=== PATIENT | male | born 1985 | race African-American/Black ===

== ENCOUNTER 2018-02-14 15:43 | Observation (INO) | payer BC ==
[2018-02-14] MEDS ORDERED: ALBUTEROL 2.5 MG/3 ML NEB SOL IH PRN (16:16)
[2018-02-14 16:34] LABS: Urine Appearance CLEAR; Urine Bilirubin NEGATIVE (NEG); Urine Blood NEGATIVE (NEG); Urine Color YELLOW; Urine Glucose NEGATIVE (NEG); Urine Protein NEGATIVE (NEG); Urine Specific Gravity <=1.005 (1.005-1.030); Urine Urobilinogen 0.2 mg/dL (0.2-1.0); Urine pH 7.5 (5.0-7.0)
[2018-02-14 16:35] LABS: Urine Microscopic Reflex NO UMIC
[2018-02-14] MEDS ORDERED: ACETAMINOPHEN 325 MG TABLET PO PRN (17:00)
[2018-02-14] MEDS ORDERED: ONDANSETRON 4 MG/2 ML VIAL IV PRN (17:00)
[2018-02-14] MEDS ORDERED: LOPERAMIDE HCL 2 MG CAPSULE PO PRN (17:00)
[2018-02-14] MEDS ORDERED: PNEUMOCOCCAL VACCINE 0.5 ML IMVAC ONE (17:00)
[2018-02-14] MEDS ORDERED: ONDANSETRON 4 MG (ODT) TAB PO PRN (17:00)
[2018-02-14] MEDS ORDERED: POLYETHYL GLY 3350 17 GM/DOSE PO PRN (17:00)
[2018-02-14 17:12] LABS: Absolute Lymphocytes (CBC) 2.8 K/uL (0.7-4.9); Absolute Monocytes 0.5 K/uL (0.1-1.3); Absolute Neutrophil 5.6 K/uL (1.8-8.0); Basophils % 0.7 % (0-1.3); Eosinophils % 0.5 % (0-4.4); Hematocrit 47.3 % (39.6-49.0); Lymphocytes % 30.7 % (15.3-44.8); MCH 28.7 pg (27.0-35.0); MCV 85.7 fL (80-100); MPV 8.6 fL (7.6-11.3); Monocytes % 5.5 % (3.3-12.3); RBC Red Blood Cell Count 5.52 M/uL (4.33-5.43)
[2018-02-14] MEDS: NACHLORIDE 0.45% 1,000 ML IV SCH (17:23)
[2018-02-14 17:55] LABS: ALT/SGPT 36 U/L (12-78); AST/SGOT 23 U/L (15-37); Albumin 4.3 g/dL (3.4-5.0); Alkaline Phosphatase 97 U/L (45-117); BUN Blood Urea Nitrogen 13 mg/dL (7-18); Bicarbonate 27 mmol/L (21-32); Bilirubin Direct < 0.1 mg/dL (0-0.2); Bilirubin Total 0.3 mg/dL (0.2-1.0); Glucose Level 128 mg/dL (74-106); Magnesium 2.5 mg/dL (1.8-2.4); NT PRO-BNP 13 pg/mL (<125); Phosphorus 3.3 mg/dL (2.5-4.9); Sodium Level 138 mmol/L (136-145)
[2018-02-14 18:03] LABS: Protime INR 1.01
[2018-02-14] MEDS: IPRATROPIUM BROM 0.5MG/2.5ML IH SCH (19:56)
[2018-02-14 19:57] VITALS: BMI 24.6
[2018-02-14] MEDS: ALBUTEROL 2.5 MG/3 ML NEB SOL IH SCH (19:57)
--- NOTE | 2018-02-14 21:10 | RAD REPORT ---
EXAM DESCRIPTION: CT - Chest Angio - 02/14/2018 8:28 pm CLINICAL HISTORY: sob COMPARISON: 2009 TECHNIQUE: Dynamically enhanced axial 3 mm thick images of the chest were obtained during administra tion of <100> mL Isovue 370 IV contrast. Coronal and oblique reconstruction images were generated and reviewed. Exam utilizes a protocol for optimal evaluation of pulmonary arterial tree. Maximum intensity projections 3D imaging was utilized All CT scans are performed using dose optimization technique as appropriate and may include automated exposure control or mA/KV adjustment according to patient size. FINDINGS: A pulmonary embolus is not seen. A thoracic aortic aneurysm is not noted. A pleural effusion is not seen. A pericardial effusion is not seen. A lung consolidation is not present. IMPRESSION: Negative for a pulmonary embolism.
--- NOTE | 2018-02-14 21:19 | RAD REPORT ---
EXAM DESCRIPTION: CT - Abdomen Pelvis W Contrast - 02/14/2018 8:28 pm CLINICAL HISTORY: Abdominal pain. COMPARISON: May 2017 TECHNIQUE: Computed axial tomography of the abdomen and pelvis was obtained. 100 cc Isovue-300 is ad ministered intravenously. Oral contrast was given. All CT scans are performed using dose optimization technique as appropriate and may include automated exposure control or mA/KV adjustment according to patient size. FINDINGS: Some of the images are degraded by respiratory motion artifact Small hepatic lesions are without obvious change The spleen, pancreas, adrenals and kidneys appear unremarkable. The appendix is normal caliber. There is no evidence of diverticulitis Right inguinal hernia contains fat IMPRESSION: Right inguinal hernia Stable small hepatic lesions. Follow-up ultrasound in 6 months is recommended for re-evaluation
[2018-02-14] MEDS: clonazePAM 0.5 MG TAB PO SCH (21:56)
[2018-02-14] MEDS: DIPHENHYDRAMINE 25 MG TAB/CAP PO PRN (21:57)
[2018-02-15] MEDS: IPRATROPIUM BROM 0.5MG/2.5ML IH SCH ×4 (02:00→20:00)
[2018-02-15] MEDS: ALBUTEROL 2.5 MG/3 ML NEB SOL IH SCH ×4 (02:00→20:00)
[2018-02-15] MEDS: NACHLORIDE 0.45% 1,000 ML IV SCH ×3 (03:47→21:37)
[2018-02-15 05:20] LABS: Absolute Lymphocytes (CBC) 4.4 K/uL (0.7-4.9); Absolute Monocytes 0.9 K/uL (0.1-1.3); Absolute Neutrophil 5.2 K/uL (1.8-8.0); Basophils % 0.5 % (0-1.3); Eosinophils % 1.8 % (0-4.4); Hematocrit 46.3 % (39.6-49.0); MCH 29.3 pg (27.0-35.0); MCV 86.4 fL (80-100); MPV 8.5 fL (7.6-11.3); Monocytes % 8.4 % (3.3-12.3); RBC Red Blood Cell Count 5.36 M/uL (4.33-5.43)
[2018-02-15 05:31] LABS: Magnesium 2.3 mg/dL (1.8-2.4); Potassium 4.1 mmol/L (3.5-5.1)
[2018-02-15] MEDS: clonazePAM 0.5 MG TAB PO SCH ×2 (08:37→21:00)
--- NOTE | 2018-02-15 13:10 | P.PN ---
Subjective Date of Service: 02/15/18 Chief Complaint: DIARRHEA, VOMITING, DYSPNEA, FATIGUE, HEADACHES Subjective: Improving Review of Systems 10-point ROS is otherwise unremarkable Physical Examination - Vital Signs Temperature: 96.6 F Blood Pressure: 115/67 Pulse: 72 Respirations: 12 Pulse Ox (%): 98 - Physical Exam General: Mild distress HEENT: Atraumatic, PERRLA, EOMI Neck: Supple, JVD not distended Respiratory: Clear to auscultation bilaterally, Normal air movement Cardiovascular: Regular rate/rhythm, Normal S1 S2 Gastrointestinal: Normal bowel sounds, No tenderness Musculoskeletal: No tenderness Integumentary: No rashes Neurological: Normal speech, Normal tone, Normal affect Lymphatics: No axilla or inguinal lymphadenopathy - Studies Laboratory Data (last 24 hrs) 02/15/18 04:47: Sodium 139, Potassium 4.1, BUN 13, Creatinine 1.30, Glucose 93, Magnesium 2.3 02/15/18 04:47: WBC 10.8 D, Hgb 15.7, Hct 46.3, Plt Count 250 02/14/18 17:30: PT 11.9, INR 1.01, APTT 28.0 02/14/18 17:00: Sodium 138, Potassium 4.0, BUN 13, Creatinine 1.40 H, Glucose 128 H, Phosphorus 3.3, Magnesium 2.5 H, Total Bilirubin 0.3, AST 23, ALT 36, Alkaline Phosphatase 97 02/14/18 17:00: WBC 9.0, Hgb 15.8, Hct 47.3, Plt Count 280 Microbiology Data (last 24 hrs): 02/14/18 20:13 Stool Occult Blood - Final Medications List Reviewed: Yes Assessment And Plan - Current Problems (Diagnosis) (1) Nausea vomiting and diarrhea Onset Date: 02/15/18 Current Visit: Yes Status: Chronic Plan: UNCLEAR ETIOLOGY HAS DONE FULL SIMMONS BY DR BERMEO FOR MONTHS. STILL NOT IMPROVED RULE OUT CARCINOID SYNDROME. MRI OF LIVER TO FU ON LESIONS 24 HOUR URINE 5HIAA CATECHOLAMINES GASTRIN LEVEL , OTHER SERUM MARKERS ORDERED FU IN AM DC AND FU ON SEND OUT LABS. Orders (last 24 hrs) 02/14/18 16:16 Albuterol Neb [Proventil 0.083% Neb Soln] 2.5 mg IH Q2HP PRN 02/14/18 16:24 Sequential Compression Device NOW 02/14/18 17:00 NASIM IFA Screen w/Reflex Routine Vitamin D,1,25 Dihydroxy Routine Acetaminophen [Tylenol -Tablet] 650 mg PO Q6HP PRN Diphenhydramine [Benadryl Tab/Cap] 25 mg PO BEDTIME PRN PRN Loperamide [Imodium] 4 mg PO Q4HP PRN Nachloride 0.45% [Sodium Chloride 0.45%] 1,000 ml IV 100 mls/hr Normal Saline Flush 10 ml IV PRN PRN Normal Saline Flush 10 ml IV QSHIFT Ondansetron [Zofran] 4 mg IV Q6HP PRN Ondansetron [Zofran] 4 mg PO Q6HP PRN Polyethyl Gly 3350 [Glycolax] 17 gm PO BEDTIME PRN PRN Blood Culture Stat 02/14/18 18:28 SBAR Routine O2 [Oxygen] Nasal Cannula 2 lpm 02/14/18 20:00 Albuterol Neb [Proventil 0.083% Neb Soln] 2.5 mg IH [id number] Ipratropium Neb [Atrovent Neb] 0.5 mg IH [id number] 02/14/18 20:13 Clostridium difficile DNA Routine Fecal Leukocyte Stain Routine Stool Culture Routine 02/14/18 21:00 clonazePAM [Klonopin] 0.5 mg PO BID 02/14/18 21:54 Isolation Cart [Isolation Precautions (Impleme] Routine 02/15/18 Hepatitis Panel,Acute Routine Mri Abdomen W/Wo Cont [MRI] Routine 02/15/18 06:37 Urine Catecholamines,24 HR Routine Urine Metanephrine 24 Hour Routine Urine VMA 24 Hr Routine 02/15/18 06:40 Miscellaneous Test Lab Routine 02/15/18 21:00 Ranitidine [Zantac] 150 mg PO BID 02/16/18 05:00 Basic Metabolic Panel DAILY CBC with Automated Diff DAILY Magnesium DAILY
--- NOTE | 2018-02-15 14:24 | CON ---
Date of Consultation: 02/14/2018 Reason: Right inguinal hernia. History Of Present Illness: The patient is a 32-year-old gentleman, comes in with acute onset of rudy rrhea, fatigue, weakness, malaise. He saw Dr. Yao yesterday. He appeared dehydrated, was admitted , and had a CAT scan done, which showed a right inguinal hernia and I was consulted. He is awake, al ert. He is really does not have any pain in the right groin at this time. He just feels weak. He h ad a similar episode last year about 6 months ago. Following some antibiotics that he had received, he had diarrhea. He has had a complete GI workup by Dr. Kim, which shows a hiatal hernia and GERD . No other significant finding and the patient currently is also being ruled out for carcinoid syndr ome by Dr. Yao. In the meantime, I was asked to evaluate the hernia. It is reducible. He is in n o discomfort from it at this time. No sore throat, runny nose, cough, headaches, or dizziness. No c hest pain. No fever or chills. Review of Systems: Otherwise unremarkable. Past Medical History: GERD and hiatal hernia. Past Surgical History: Oral, sinus surgery. Allergies: INCLUDE AZITHROMYCIN. Social History: Does not smoke or drink. Family History: Noncontributory. Physical Examination: Vital Signs: Stable. He is afebrile. General: He is awake, alert, and oriented x3. Head and neck: Cranial nerves 2 through 12 are grossly within normal limits. No neck masses. No JV D. Throat clear. Neck is supple. Chest: Clear. Heart: S1, S2. Abdomen: Soft, nondistended, nontender. Positive bowel sounds. Extremities: Neurovascularly intact. Neuro: nonfocal. Pelvic: Right groin, there is a small right inguinal hernia, which is reducible. Normal penis and t mcmullen. No hernia on the left side. CT of the abdomen and pelvis reviewed and laboratory data reviewed. Essentially, he has some cysts o n his liver, which are being worked up with MRI and otherwise he just has a right inguinal hernia wit h fat containing. White count is normal. Chemistry initially showed some dehydration with elevated creatinine, which is normalized today. Assessment: A 32-year-old gentleman with diarrhea, workup in progress and right inguinal hernia. Es sentially asymptomatic at this time. Recommendation: Medical management for his GI issues and workup for carcinoid syndrome. The patient does not need his right inguinal hernia repaired at this time. Should he be symptomatic, he can fol low up as an outpatient and then I will be happy to take care of it as an outpatient. Plan of care d iscussed in detail with the patient as well as Dr. Yao. LAURA/PURVI Voice ID: [id number] Report ID: [id number]
[2018-02-15] MEDS: RANITIDINE 150 MG TABLET PO SCH (21:00)
[2018-02-15] MEDS: DIPHENHYDRAMINE 25 MG TAB/CAP PO PRN (21:36)
[2018-02-16] MEDS: ALBUTEROL 2.5 MG/3 ML NEB SOL IH SCH ×3 (02:00→14:00)
[2018-02-16] MEDS: IPRATROPIUM BROM 0.5MG/2.5ML IH SCH ×3 (02:00→14:00)
[2018-02-16 04:18] LABS: Absolute Neutrophil 5.6 K/uL (1.8-8.0); Basophils % 0.9 % (0-1.3); Eosinophils % 2.2 % (0-4.4); Hematocrit 44.5 % (39.6-49.0); Lymphocytes % 41.7 % (15.3-44.8); MCH 29.2 pg (27.0-35.0); MCV 87.1 fL (80-100); MPV 8.1 fL (7.6-11.3); Monocytes % 8.5 % (3.3-12.3); RBC Red Blood Cell Count 5.11 M/uL (4.33-5.43)
[2018-02-16 04:30] LABS: Magnesium 2.2 mg/dL (1.8-2.4); Potassium 4.2 mmol/L (3.5-5.1)
--- NOTE | 2018-02-16 08:04 | ECHO ---
HEIGHT: 5 ft 8 in WEIGHT: 162 lb 0 oz DATE OF STUDY: 02/15/[address]: Coy Yao MD 2-DIMENSIONAL: YES M.MODE: YES DOPPLER: YES COLOR FLOW: YES TDS: PORTABLE: DEFINITY: BUBBLE STUDY: DIAGNOSIS: DYSPNEA CARDIAC HISTORY: CATHERIZATION: NO SURGERY: NO PROSTHETIC VALVE: NO PACEMAKER: NO MEASUREMENTS (cm) DIASTOLIC (NORMALS) SYSTOLIC (NORMALS) IVSd 1.0 (0.6-1.2) LA Diam 2.7 (1.9-4.0) LVEF 75% LVIDd 3.9 (3.5-5.7) LVIDs 2.2 (2.0-3.5) %FS 44% LVPWd 1.1 (0.6-1.2) Ao Diam 2.7 (2.0-3.7) 2 DIMENSIONAL ASSESSMENT: RIGHT ATRIUM: NORMAL LEFT ATRIUM: NORMAL RIGHT VENTRICLE: NORMAL LEFT VENTRICLE: NORMAL TRICUSPID VALVE: NORMAL MITRAL VALVE: NORMAL PULMONIC VALVE: NORMAL AORTIC VALVE: NORMAL PERICARDIAL EFFUSION: NONE AORTIC ROOT: NORMAL LEFT VENTRICULAR WALL MOTION: NORMAL DOPPLER/COLOR FLOW: NORMAL COMMENTS: NORMAL 2-DIMENSIONAL ECHOCARDIOGRAM WITH DOPPLER. NO WALL MOTION ABNORMALITY. NO EFFUSION. NO MITRAL VALVE PROLAPSE. NO ATRIAL SEPTAL DEFECT. TECHNOLOGIST: SOLEDAD HINTON
[2018-02-16] MEDS ORDERED: PANTOPRAZOLE 40 MG INJ IVP ONE (08:11)
[2018-02-16] MEDS ORDERED: SODIUM CHLORIDE 0.9% 10ML INJ IV PRN (08:11)
[2018-02-16] MEDS: RANITIDINE 150 MG TABLET PO SCH (09:00)
[2018-02-16] MEDS ORDERED: [UNRECOGNIZED DRUG - OTHER] PO SCH (09:00)
[2018-02-16] MEDS: NACHLORIDE 0.45% 1,000 ML IV SCH (09:08)
[2018-02-16] MEDS: clonazePAM 0.5 MG TAB PO SCH (09:11)
[2018-02-16 11:41] VITALS: O2SAT 98
--- NOTE | 2018-02-16 12:25 | RAD REPORT ---
EXAM DESCRIPTION: MRI - Mri Abdomen W/Wo Cont - 02/16/2018 11:30 am CLINICAL HISTORY: HEPATIC LESIONS COMPARISON: Abdomen Pelvis W Contrast dated 02/14/2018; Chest Angio dated 02/14/2018; Abdomen Pelv is W Contrast dated 06/18/2017 FINDINGS: Significant motion degradation is present. This limits quality of study. Several T2 hyperintense liver lesions are seen predominately in the right lobe. On dynamic post-contr ast sequences, lesions appear to demonstrate a filling in with contrast. The 9 mm lesion in the super ior right lobe of the liver demonstrates typical contrast fill-in both of a hemangioma. Adjacent 12 m m lesion shows complete fill-in with contrast favoring flash filling hemangioma. However, an 11 mm le peewee in the inferior right lobe shows more central contrast enhancement, having the appearance of a t arget lesion. No intra or extrahepatic biliary tree dilatation. The spleen, adrenal glands and kidneys show no worrisome abnormality. No concerning pancreatic findin g. No bulky lymphadenopathy is present in the abdomen. No free fluid collections. IMPRESSION: Small T2 hyperintense right lobe hepatic lesions are seen which are favored to represent benign hemangioma, however, an inferior right hepatic lobe lesion shows atypical enhancement feature s. It is recommended the patient undergo a followup MR liver protocol in 6 months to monitor these fi ndings. No worrisome pancreatic finding.
[2018-02-16 12:46] VITALS: BP 130/72; TEMP 98.3
--- NOTE | 2018-02-16 21:40 | P.DS ---
Admission Date: 02/14/18 Discharge Date: 02/16/18 Disposition: ROUTINE DISCHARGE Discharge Condition: FAIR Reason for Admission: DIARRHEA, VOMITING, DYSPNEA, FATIGUE, HEADACHES - Problems (1) Nausea vomiting and diarrhea Onset Date: 02/15/18 Status: Chronic Hospital Course: MR. SHEPHERD WAS IN A GOOD SHAPE ABOUT 6 MONTHS AGO WHEN HE STARTED TO HAVE MANY GI SYMPTOMS. NAUSEA, VOMITING, DIARREHA , BURPING,LATER DYSPNEA. HEADACHES ETC. 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 HIS SYMPTOMS DID NOT IMPROVE WITH PPI, ANTIANXIETY, ANTIDEPRESENTS AND SO I DECIDED TO ADMIT HIM FOR A DAY OR SO. ONLY ABDOMEN FINDING IS INGUINAL ERNIA THAT IS NOT PAINFUL. DR Janneth ANDRADEKD TO WAIT FOR IT UNTIL OTHER SS GETS BETTER. HE HAS SOME SYMPTOMS OF CARCINOID SYNDROME. I HAVE SENT ALL ORDERS FOR THAT. HE HAD CT PULMONARY ANGIOGRAM THAT IS NEGATIVE I ORDERED MRI OF LIVER IS HE HAD LESIONS. THESE MANAGER PET TO BE HEMANGIOMAS EXCEPT ONE LESION NEEDS FOLLOW UP MRI IN 6 MONTHS. I WILL DISCUSS WITH HIM ABOUT THIS NEXT WEEK AT OFFICE. TRYING TO DO MRI HE HAD GERD ADN COUND NOT BREATH. I STARTED HIM ON PROTONIX BID TO SE IF IT WORKS BETTER. Vital Signs/Physical Exam: Temp Pulse Resp BP Pulse Ox 98.3 F 90 18 130/72 90 L 02/16/18 12:00 02/16/18 12:00 02/16/18 12:00 02/16/18 12:00 02/16/18 12:00 Laboratory Data at Discharge: WBC 12.0 K/uL (4.3-10.9) H 02/16/18 03:57 Hgb 14.9 g/dL (13.6-17.9) 02/16/18 03:57 Hct 44.5 % (39.6-49.0) 02/16/18 03:57 Plt Count 235 K/uL (152-406) 02/16/18 03:57 PT 11.9 SECONDS (9.5-12.5) 02/14/18 17:30 INR 1.01 02/14/18 17:30 APTT 28.0 SECONDS (24.3-36.9) 02/14/18 17:30 Sodium 139 mmol/L (136-145) 02/16/18 03:57 Potassium 4.2 mmol/L (3.5-5.1) 02/16/18 03:57 BUN 18 mg/dL (7-18) 02/16/18 03:57 Creatinine 1.40 mg/dL (0.55-1.3) H 02/16/18 03:57 Glucose 104 mg/dL (74-106) 02/16/18 03:57 Phosphorus 3.3 mg/dL (2.5-4.9) 02/14/18 17:00 Magnesium 2.2 mg/dL (1.8-2.4) 02/16/18 03:57 Total Bilirubin 0.3 mg/dL (0.2-1.0) 02/14/18 17:00 AST 23 U/L (15-37) 02/14/18 17:00 ALT 36 U/L (12-78) 02/14/18 17:00 Alkaline Phosphatase 97 U/L (45-117) 02/14/18 17:00 Home Medications: Dexlansoprazole [Dexilant] 60 mg PO DAILY 02/14/18 L.acidoph,Paracasei, B.lactis [Probiotic] 1 each PO DAILY 02/14/18 Lactobac #2-S. Therm-Bifido #1 [Vsl#3 Ds Packet] 1 packet PO DAILY 02/14/18 Mirtazapine [Remeron] 15 mg PO BEDTIME 02/14/18 Venlafaxine HCl [Effexor] 37.5 mg PO DAILY 02/14/18 Ranitidine [Zantac*] 1 tab PO BIDP PRN 02/15/18 Pantoprazole [Protonix Tab*] 40 mg PO BID #60 tab 02/16/18 New Medications: Pantoprazole [Protonix Tab*] 40 mg PO BID #60 tab Followup: Coy Yao MD [ACTIVE - CAN ADMIT] -
[2018-02-17 13:20] LABS: HBsAG Nonreactive (Nonreactive); Hepatitis A IgM Antibody Nonreactive
[2018-02-17 22:45] LABS: Vitamin D 1,25-Dihydroxy Total 65 pg/mL (18-72); Vitamin D,1,25-OH2, D2 <8 pg/mL
[2018-02-20 13:02] LABS: Ur Total Volume (Vanillylmande 3900 mL/24 h
[2018-02-20 17:06] LABS: 24 HR VOLUME 3900 mL/24 h; Epinephrine Level 30 mcg/24 h (2-24)
[2018-02-21 05:18] LABS: Urine 24HR Volume Metan 3900 mL
--- NOTE | 2018-03-06 11:22 | P.HP ---
Certification for Inpatient Patient admitted to: Observation With expected LOS: <2 Midnights (HISTORY NOTE WAS FAXED FROM OFFICE TO HOSPITAL ON DAY OF ADMISSION. ASK THE MEDICAL REIMBURSEMENT MANAGER WHO GAVE HIM A BED AND GET A COPY PLEASE.) Practitioner: I am a practitioner with admitting privileges, knowledge of patient current condition, hospital course, and medical plan of care. Services: Services provided to patient in accordance with Admission requirements found in Title 42 Section 412.3 of the Code of Federal Regulations Patient History Date of Service: 03/06/18 Reason for admission: DIARRHEA, VOMITING, DYSPNEA, FATIGUE, HEADACHES Allergies azithromycin Allergy (Verified 02/14/18 16:20) Hives/Rash Home Medications: Dexlansoprazole [Dexilant] 60 mg PO DAILY 02/14/18 L.acidoph,Paracasei, B.lactis [Probiotic] 1 each PO DAILY 02/14/18 Lactobac #2-S. Therm-Bifido #1 [Vsl#3 Ds Packet] 1 packet PO DAILY 02/14/18 Mirtazapine [Remeron] 15 mg PO BEDTIME 02/14/18 Venlafaxine HCl [Effexor] 37.5 mg PO DAILY 02/14/18 Ranitidine [Zantac*] 1 tab PO BIDP PRN 02/15/18 Pantoprazole [Protonix Tab*] 40 mg PO BID #60 tab 02/16/18 - Past Medical/Surgical History Has patient received pneumonia vaccine in the past: No Diabetic: No -: INGUINAL HERNIA -: HIATAL HERNIA -: GASTRITIS -: GERD -: ASTHMA -: SINUS SX - Family History Mother Notes: NONE Father -: Hypertension - Social History Smoking Status: Never smoker Alcohol use: Yes CD- Drugs: No Caffeine use: No Place of Residence: Home Physical Examination - Vital Signs Temperature: 98.3 F Blood Pressure: 130/72 Pulse: 90 Respirations: 18 Pulse Ox (%): 90 Assessment and Plan - Problems (Diagnosis) (1) Nausea vomiting and diarrhea Onset Date: 02/15/18 Status: Chronic Plan: UNCLEAR ETIOLOGY HAS DONE FULL SIMMONS BY DR BERMEO FOR MONTHS. STILL NOT IMPROVED RULE OUT CARCINOID SYNDROME. MRI OF LIVER TO FU ON LESIONS 24 HOUR URINE 5HIAA CATECHOLAMINES GASTRIN LEVEL , OTHER SERUM MARKERS ORDERED FU IN AM DC AND FU ON SEND OUT LABS. Orders (last 24 hrs) 02/14/18 16:16 Albuterol Neb [Proventil 0.083% Neb Soln] 2.5 mg IH Q2HP PRN 02/14/18 16:24 Sequential Compression Device NOW 02/14/18 17:00 NASIM IFA Screen w/Reflex Routine Vitamin D,1,25 Dihydroxy Routine Acetaminophen [Tylenol -Tablet] 650 mg PO Q6HP PRN Diphenhydramine [Benadryl Tab/Cap] 25 mg PO BEDTIME PRN PRN Loperamide [Imodium] 4 mg PO Q4HP PRN Nachloride 0.45% [Sodium Chloride 0.45%] 1,000 ml IV 100 mls/hr Normal Saline Flush 10 ml IV PRN PRN Normal Saline Flush 10 ml IV QSHIFT Ondansetron [Zofran] 4 mg IV Q6HP PRN Ondansetron [Zofran] 4 mg PO Q6HP PRN Polyethyl Gly 3350 [Glycolax] 17 gm PO BEDTIME PRN PRN Blood Culture Stat 02/14/18 18:28 SBAR Routine O2 [Oxygen] Nasal Cannula 2 lpm 02/14/18 20:00 Albuterol Neb [Proventil 0.083% Neb Soln] 2.5 mg IH [id number] Ipratropium Neb [Atrovent Neb] 0.5 mg IH [id number] 02/14/18 20:13 Clostridium difficile DNA Routine Fecal Leukocyte Stain Routine Stool Culture Routine 02/14/18 21:00 clonazePAM [Klonopin] 0.5 mg PO BID 02/14/18 21:54 Isolation Cart [Isolation Precautions (Impleme] Routine 02/15/18 Hepatitis Panel,Acute Routine Mri Abdomen W/Wo Cont [MRI] Routine 02/15/18 06:37 Urine Catecholamines,24 HR Routine Urine Metanephrine 24 Hour Routine Urine VMA 24 Hr Routine 02/15/18 06:40 Miscellaneous Test Lab Routine 02/15/18 21:00 Ranitidine [Zantac] 150 mg PO BID 02/16/18 05:00 Basic Metabolic Panel DAILY CBC with Automated Diff DAILY Magnesium DAILY - Advance Directives Does patient have a Living Will: No Does patient have a Durable POA for Healthcare: No
== END 2018-02-16 15:12 | disposition home or self-care (01) ==
LOC: 2ND 15:52
PROVIDERS: ADMIT Internal Medicine; ATTEND Internal Medicine
DX: R11.2 Nausea with vomiting, unspecified (principal); R19.7 Diarrhea, unspecified; K40.90 Unilateral inguinal hernia, without obstruction or gangrene, not specified as recurrent; D18.03 Hemangioma of intra-abdominal structures; K21.9 Gastro-esophageal reflux disease without esophagitis
CPT/HCPCS: 36415; 71275; 74177; 80048; 80074; 80076; 81003; 82274; 82384; 82607; 82652; 83735; 83835; 83880; 84100; 84443; 84585; 85025; 85379; 85610; 85652; 85730; 86038; 87040; 87045; 87046; 87177; 87209; 87493; 89055; 93306; C9113; G0378; Q9967